=== PATIENT | male | born 1995 | race African-American/Black ===

== ENCOUNTER 2018-03-09 17:22 | Emergency (ER) | payer MEDICAID ==
--- NOTE | 2018-03-09 17:55 | Emergency Department Record ---
History of Present Illness - General Chief Complaint: Abdominal Pain Stated Complaint: ABD PAIN/R SHOULDER PAIN/R FOOT PAIN Time Seen by Provider: 03/09/18 17:41 Source: Patient Mode of Arrival: Ambulatory Limitations: No limitations - History of Present Illness Initial Comments: The patient is here due to a one year hx of AP. The pain is just above his umbilicus and occurs only when he pushes on it or sometimes when he is having a BM. He denies any nausea, vomiting, diarrhea, fever, or dysuria. The patient does state he has had some blood in his urine but that was a few days ago. He also had a small amount of blood on the TP when wiping a few days ago but that has stopped also. The patient did also complain multiple other very chronic complaints but he has seen his PCP for it recently and does not want to be evaluated for it. He specifically complained of R shoulder pain for at least 2 years. He has seen his PCP for it but states he is not doing anything for it. MD Complaint: Abdominal pain Onset/Timin -: Year(s) Location: Periumbilical Radiation: None Migration to: No migration Severity scale (1-10): 5 Quality: Aching Consistency: Intermittent Improves With: Nothing Worsens With: Movement - Related Data Home Medications Medication Instructions Recorded Confirmed Last Taken Gabapentin [Neurontin] 300 mg PO BID 03/09/18 03/09/18 03/09/18 Venlafaxine HCl [Effexor Xr] 150 mg PO DAILY 03/09/18 03/09/18 03/09/18 Allergies Allergy/AdvReac Type Severity Reaction Status Date / Time No Known Drug Allergies Allergy Verified 03/09/18 17:27 Travel Screening - Travel/Exposure Within Last 30 Days Have you traveled within the last 30 days?: No Review of Systems Constitutional: Denies: Chills, Fever Eyes: Denies: Eye discharge ENT: Denies: Congestion Respiratory: Denies: Cough, Dyspnea Past Medical History - SOCIAL HISTORY Smoking Status: Never smoker Alcohol Use: Rare Drug Use Detail:: Marijuana - RESPIRATORY Hx Respiratory Disorders: No - CARDIOVASCULAR Hx Cardio Disorders: No - NEURO Hx Neuro Disorders: No - GI Hx GI Disorders: No - Hx Genitourinary Disorders: No - ENDOCRINE Hx Endocrine Disorders: No - MUSCULOSKELETAL Hx Musculoskeletal Disorders: No - PSYCH Hx Psych Problems: Yes Hx Anxiety: Yes Hx Depression: Yes - HEMATOLOGY/ONCOLOGY Hx Hematology/Oncology Disorders: No Family Medical History Any Significant Family History?: Yes Hx Stroke: Father Physical Exam - General General Appearance: Alert, Oriented x3, Cooperative, No acute distress - Head Head exam: Atraumatic, Normocephalic, Normal inspection - Eye Eye exam: Normal appearance, PERRL - Neck Neck exam: Normal inspection, Full ROM. negative: Tenderness - Respiratory Respiratory exam: Normal lung sounds bilaterally. negative: Respiratory distress - Cardiovascular Cardiovascular Exam: Regular rate, Normal rhythm, Normal heart sounds - GI/Abdominal GI/Abdominal exam: Soft, Normal bowel sounds. negative: Distended, Guarding, Hernia, Hypoactive bowel sounds, Mass, Rebound, Rigid, Tenderness - exam: Normal inspection. negative: Circumcision, Scrotal swelling, Testicular tenderness, Urethral discharge - Extremities Extremities exam: Normal inspection, Full ROM (There is normal full ROM of the R shoulder with no pain.), Normal capillary refill. negative: Joint swelling, Tenderness - Neurological Neurological exam: Alert, Normal gait. negative: Abnormal gait Course Vital Signs 03/09/18 17:31 Temperature 97.8 F Pulse Rate 84 Respiratory 18 Rate Blood Pressure 134/83 Pulse Ox 98 - Reevaluation(s) Reevaluation #1: I did discuss the issues with the urine further with the patient. He states he was checked out for an STD a few months ago and was neg and denies any urethral discharge or persistent dysuria. I explained to him that we will order a urine culture and will also order a urine GC and Chlamydia and will contact him if positive. I did stress the need to see the patient's PCP next week to discuss the multiple chronic issues he has complained of. The patient states he will comply. 03/09/18 18:19 Disposition Disposition: Discharge Clinical Impression: Hematuria Qualifiers: Hematuria type: unspecified type Qualified Code(s): R31.9 - Hematuria, unspecified Disposition: Home, Self-Care Condition: (2) Stable Instructions: Hematuria (ED) Additional Instructions: Please call your family doctor for an appointment next week to go over the chronic issues that you have been having. Return to the ER for any worsening symptoms, or any pain, fever, or vomiting. Forms: Patient Portal Access Time of Disposition: 18:23 Quality - Quality Measures Quality Measures: N/A - Blood Pressure Screening View Details: Yes Does Patient Have Any of the Following: No Blood Pressure Classification: Normal BP Reading Systolic Measurement: 104 Diastolic Measurement: 63 Screening for High Blood Pressure: < Normal BP, F/U Not Required > [[id number]]
[2018-03-09 18:03] LABS: URINE APPEARANCE SL CLOUDY; URINE BILIRUBIN NEGATIVE (NEGATIVE); URINE BLOOD SMALL (NEGATIVE); URINE COLOR YELLOW; URINE GLUCOSE (UA) NEGATIVE (NEGATIVE); URINE KETONE NEGATIVE (NEGATIVE); URINE LEUKOCYTE ESTERASE SMALL (NEGATIVE); URINE NITRITE NEGATIVE (NEGATIVE); URINE PROTEIN NEGATIVE (NEGATIVE)
[2018-03-09 18:12] LABS: URINE BACTERIA NONE SEEN; URINE EPITHELIAL CELLS 0 - 2 (FEW); URINE RBC 0 - 2 (NONE SEEN)
== END 2018-03-09 18:31 | disposition home or self-care (01) ==
LOC: ER 17:22
DX: R10.33 Periumbilical pain (principal); R31.29 Other microscopic hematuria; M25.511 Pain in right shoulder
CPT/HCPCS: 81001; 99283